=== PATIENT | male | born 1970 | race African-American/Black ===

== ENCOUNTER 2022-12-18 12:29 | Outpatient (REF) | payer MEDICAID, SELFPAY ==
[2022-12-18 14:07] LABS: Alanine Aminotransferase 25 U/L (0-40); Albumin Level 4.7 g/dL (3.5-5.0); Alkaline Phosphatase 115 U/L (39-117); Anion Gap 14 (12-20); Aspartate Amino Transferase 21 U/L (5-37); Bilirubin Total 0.6 mg/dL (0.0-1.0); Blood Urea Nitrogen 15 mg/dL (9-16); Calcium 10.8 mg/dL (8.4-10.2); Carbon Dioxide 25 mmol/L (22-29); Chloride 104 mmol/L (96-108); Cholesterol 188 mg/dL; Estimated Glomerular Filt Rate > 60; Glucose Random 94 mg/dL (60-115); HDL Cholesterol 38 mg/dL; LDL Cholesterol Calculated 97 mg/dl; Potassium 4.4 mmol/L (3.3-5.1); Sodium 139 mmol/L (135-145); Total Protein 9.2 g/dL (6.5-8.0); Triglycerides 266 mg/dL
[2022-12-18 14:16] LABS: TSH reflex Free T4 3.07 uIU/mL (0.32-4.0)
== END 2022-12-18 12:30 | disposition home or self-care (01) ==
LOC: HO.HHCL 12:29
PROVIDERS: Visit Provider Registered Nurse
DX: E78.1 Pure hyperglyceridemia (principal); E78.2 Mixed hyperlipidemia; F41.9 Anxiety disorder, unspecified; F32.A Depression, unspecified; R35.0 Frequency of micturition
CPT/HCPCS: 36415; 80053; 80061; 84443

== ENCOUNTER 2023-03-01 11:50 | Outpatient (REF) | payer MEDICAID, SELFPAY ==
[2023-03-01 13:09] LABS: MANUAL DIFF FLAG NO
[2023-03-01 13:26] LABS: Basophils Absolute Auto 0.1 X10*3/uL (0.0-0.2); Basophils Percent Auto 0.9 % (0-2); Eosinophils Absolute Auto 0.8 X10*3/uL (0.0-0.4); Eosinophils Percent Auto 11.4 % (0-4); Hematocrit 42.7 % (42.0-52.0); Hemoglobin 13.3 g/dl (14.0-18.0); Imm Gran Abs Auto 0.02 X10*3/uL (0.00-0.03); Imm Gran Pct Auto 0.3 % (0.0-0.4); Lymphocytes Absolute Auto 2.7 X10*3/uL (1.2-4.9); Lymphocytes Percent Auto 41.2 % (20-40); Mean Corpuscular HGB Conc 31.1 g/dl (31.0-36.0); Mean Corpuscular Volume 83.4 fL (80.0-98.0); Mean Platelet Volume 9.7 fL (9.4-12.4); Monocytes Absolute Auto 0.5 X10*3/uL (0.1-1.2); Monocytes Percent Auto 8.1 % (2-11); Neutrophils Absolute Auto 2.5 x10*3/uL (2.0-8.3); Neutrophils Percent Auto 38.1 % (45-73); Platelet Count 281 X10*3/uL (160-400); Red Blood Count 5.12 X10*6/uL (4.60-5.80); White Blood Count 6.6 X10*3/uL (4.8-10.8)
[2023-03-01 14:21] LABS: Alanine Aminotransferase 39 U/L (0-40); Albumin Level 4.6 g/dL (3.5-5.0); Alkaline Phosphatase 89 U/L (39-117); Anion Gap 14 (12-20); Aspartate Amino Transferase 24 U/L (5-37); Bilirubin Total 0.4 mg/dL (0.0-1.0); Blood Urea Nitrogen 16 mg/dL (9-16); Calcium 9.5 mg/dL (8.4-10.2); Carbon Dioxide 22 mmol/L (22-29); Chloride 108 mmol/L (96-108); Estimated Glomerular Filt Rate > 60; Glucose Random 93 mg/dL (60-115); Potassium 4.2 mmol/L (3.3-5.1); Sodium 140 mmol/L (135-145); Total Protein 8.6 g/dL (6.5-8.0)
[2023-03-04 06:57] LABS: Absolute CD3 Count 1514 cells/uL (840-3060); Absolute CD4 Count 320 cells/uL (490-1740); Absolute CD8 Count 1165 cells/uL (180-1170); Absolute Lymphocytes 2721 cells/uL (850-3900); CD4 CD8 Ratio 0.27 (0.86-5.00); Percent CD3 Cells 56 % (57-85); Percent CD4 Cells 12 % (30-61); Percent CD8 Cells 43 % (12-42)
[2023-03-05 13:19] LABS: HIV RNA PCR Qn Copies 85 copies/mL (NOT DETECTED); HIV RNA PCR Qn Log Copies 1.93 (NOT DETECTED)
== END 2023-03-01 11:51 | disposition home or self-care (01) ==
LOC: HO.HHCL 11:50
PROVIDERS: Visit Provider Internal Medicine
DX: B20 Human immunodeficiency virus [HIV] disease (principal)
CPT/HCPCS: 36415; 80053; 85025; 86359; 86360; 87536

== ENCOUNTER 2023-06-14 13:22 | Outpatient (REF) | payer MEDICAID, SELFPAY ==
[2023-06-17 10:43] LABS: Absolute CD3 Count 1948 cells/uL (840-3060); Absolute CD4 Count 411 cells/uL (490-1740); Absolute CD8 Count 1539 cells/uL (180-1170); Absolute Lymphocytes 2739 cells/uL (850-3900); CD4 CD8 Ratio 0.27 (0.86-5.00); Percent CD3 Cells 71 % (57-85); Percent CD4 Cells 15 % (30-61); Percent CD8 Cells 56 % (12-42)
== END 2023-06-14 13:23 | disposition home or self-care (01) ==
LOC: HO.HHCL 13:22
PROVIDERS: Visit Provider Internal Medicine
DX: B20 Human immunodeficiency virus [HIV] disease (principal)
CPT/HCPCS: 36415; 86359; 86360; 86481; 87536

== ENCOUNTER 2023-07-19 14:00 | Outpatient (RCR) | payer MEDICAID, SELFPAY | END 2024-03-17 13:58 | disposition home or self-care (01) | LOC: HO.PTCHIC 14:00 | PROVIDERS: PCP Nurse Practitioner Primary Care; Visit Provider Nurse Practitioner Primary Care | DX: M54.50 Low back pain, unspecified (principal); G89.29 Other chronic pain | CPT/HCPCS: 97110; 97162 ==

== ENCOUNTER 2023-12-13 12:19 | Outpatient (REF) | payer MEDICAID, SELFPAY ==
[2023-12-13 13:09] LABS: MANUAL DIFF FLAG NO
[2023-12-13 13:45] LABS: Basophils Absolute Auto 0.1 X10*3/uL (0.0-0.2); Basophils Percent Auto 0.9 % (0-2); Eosinophils Absolute Auto 0.7 X10*3/uL (0.0-0.4); Eosinophils Percent Auto 9.7 % (0-4); Hematocrit 44.3 % (42.0-52.0); Hemoglobin 14.1 g/dl (14.0-18.0); Imm Gran Abs Auto 0.02 X10*3/uL (0.00-0.03); Imm Gran Pct Auto 0.3 % (0.0-0.4); Lymphocytes Absolute Auto 2.8 X10*3/uL (1.2-4.9); Lymphocytes Percent Auto 41.9 % (20-40); Mean Corpuscular HGB Conc 31.8 g/dl (31.0-36.0); Mean Corpuscular Hemoglobin 26.1 pg (27.0-33.0); Mean Platelet Volume 9.2 fL (9.4-12.4); Monocytes Absolute Auto 0.4 X10*3/uL (0.1-1.2); Monocytes Percent Auto 6.2 % (2-11); Neutrophils Absolute Auto 2.8 x10*3/uL (2.0-8.3); Platelet Count 255 X10*3/uL (160-400); Red Cell Distribution Width 14.9 % (11.0-16.0); White Blood Count 6.7 X10*3/uL (4.8-10.8)
[2023-12-13 13:46] LABS: Cholesterol 118 mg/dL (<200); HDL Cholesterol 35 mg/dL (>40); LDL Cholesterol Calculated 35 mg/dL (<100); Triglycerides 243 mg/dL (<150)
[2023-12-13 13:55] LABS: Prostate Specific Antigen 2.22 ng/mL (<0.05-4.0)
[2023-12-13 16:14] LABS: Appearance Urine Clear; Color Urine Dark Yellow; Glucose Urine UA Negative (Negative); Leukocyte Esterase Urine Negative (Negative); Nitrite Urine Negative (Negative); PH 5.5 (5.0-9.0); Specific Gravity - Urine >= 1.030 (1.005-1.025); Urine Blood Negative (Negative); Urine Ketones Trace mg/dL (Negative); Urine Protein Trace mg/dL (Neg-Trace)
[2023-12-13 16:17] LABS: Bacteria Urine None Seen (None Seen); Hyaline Casts Urine 0-2 /LPF (0-2); RBC Urine 0-2 /HPF (0-2); Squamous Epithelial Cell Urine 0-2 /HPF (0-2); WBC Urine 0-5 /HPF (0-5)
[2023-12-14 15:28] LABS: C. trachomatis RNA TMA NOT DETECTED (NOT DETECTED); N. gonorrhoeae RNA TMA NOT DETECTED (NOT DETECTED)
[2023-12-17 13:32] LABS: Testosterone, Free 43.1 pg/mL (35.0-155.0); Testosterone, Total 228 ng/dL (250-1100)
== END 2023-12-13 12:20 | disposition home or self-care (01) ==
LOC: HO.HHCL 12:19
PROVIDERS: Visit Provider Nurse Practitioner Primary Care
DX: R39.12 Poor urinary stream (principal); R53.83 Other fatigue; R73.03 Prediabetes; N50.82 Scrotal pain
CPT/HCPCS: 36415; 80061; 81001; 84153; 84402; 84403; 85025; 87491; 87591

== ENCOUNTER 2024-03-25 13:50 | Outpatient (REF) | payer MEDICAID, SELFPAY ==
[2024-03-25 16:47] LABS: Alanine Aminotransferase 48 U/L (0-40); Albumin Level 4.7 g/dL (3.5-5.0); Alkaline Phosphatase 117 U/L (39-117); Anion Gap 12 (12-20); Aspartate Amino Transferase 35 U/L (5-37); Bilirubin Total 0.4 mg/dL (0.0-1.0); Blood Urea Nitrogen 15 mg/dL (9-16); Calcium 9.8 mg/dL (8.4-10.2); Carbon Dioxide 24 mmol/L (22-29); Chloride 107 mmol/L (96-108); Estimated Glomerular Filt Rate > 60; Glucose Random 115 mg/dL (60-115); Sodium 139 mmol/L (135-145); Total Protein 8.2 g/dL (6.5-8.0)
[2024-03-25 17:08] LABS: TSH reflex Free T4 2.67 uIU/mL (0.32-4.0)
[2024-03-26 08:22] LABS: Syphilis Screen Nonreactive (Nonreactive)
[2024-03-26 08:30] LABS: HBS Num1 0.34 mIU/mL (0-7.99); HBsAGNum1 0.52 S/CO (0.00-0.99); Hepatitis B Core Antibody Nonreactive (Nonreactive); Hepatitis B Surface Antigen Negative (Negative); ~HepC Num1 0.18 S/CO (0.00-0.79); ~Hepatitis B Surface Antibody NONREACTIVE (Nonreactive); ~Hepatitis C Antibody Nonreactive (Nonreactive)
[2024-03-26 20:03] LABS: Follicle Stimulating Hormone 6.3 mIU/mL (1.4-12.8); Lutenizing Hormone 4.3 mIU/mL (1.5-9.3); Sex Hormone Binding Globulin 14 nmol/L (10-50)
[2024-03-29 17:33] LABS: Testosterone, Total 181 ng/dL (250-1100)
[2024-03-29 18:14] LABS: Absolute CD3 Count 1710 cells/uL (840-3060); Absolute CD4 Count 400 cells/uL (490-1740); Absolute CD8 Count 1274 cells/uL (180-1170); Absolute Lymphocytes 2367 cells/uL (850-3900); CD4 CD8 Ratio 0.31 (0.86-5.00); Percent CD3 Cells 72 % (57-85); Percent CD4 Cells 17 % (30-61); Percent CD8 Cells 54 % (12-42)
== END 2024-03-25 13:51 | disposition home or self-care (01) ==
LOC: HO.HHCL 13:50
PROVIDERS: Referring Provider Nurse Practitioner Primary Care; Visit Provider Internal Medicine
DX: B20 Human immunodeficiency virus [HIV] disease (principal); R79.89 Other specified abnormal findings of blood chemistry; Z68.32 Body mass index [BMI] 32.0-32.9, adult; R53.83 Other fatigue
CPT/HCPCS: 36415; 80053; 83001; 83002; 84270; 84402; 84403; 84443; 86359; 86360; 86704; 86706; 86780; 86803; 87340

== ENCOUNTER 2024-04-06 13:00 | Outpatient (REF) | payer MEDICAID, SELFPAY ==
[2024-04-06 16:13] LABS: MANUAL DIFF FLAG NO
[2024-04-06 16:17] LABS: Basophils Absolute Auto 0.1 X10*3/uL (0.0-0.2); Basophils Percent Auto 1.1 % (0-2); Eosinophils Absolute Auto 0.4 X10*3/uL (0.0-0.4); Eosinophils Percent Auto 6.5 % (0-4); Hematocrit 42.2 % (42.0-52.0); Hemoglobin 13.8 g/dl (14.0-18.0); Imm Gran Abs Auto 0.01 X10*3/uL (0.00-0.03); Imm Gran Pct Auto 0.2 % (0.0-0.4); Lymphocytes Absolute Auto 2.6 X10*3/uL (1.2-4.9); Lymphocytes Percent Auto 40.2 % (20-40); Mean Corpuscular HGB Conc 32.7 g/dl (31.0-36.0); Mean Corpuscular Hemoglobin 26.8 pg (27.0-33.0); Mean Corpuscular Volume 81.9 fL (80.0-98.0); Mean Platelet Volume 9.7 fL (9.4-12.4); Monocytes Absolute Auto 0.5 X10*3/uL (0.1-1.2); Neutrophils Absolute Auto 2.9 x10*3/uL (2.0-8.3); Platelet Count 313 X10*3/uL (160-400); Red Blood Count 5.15 X10*6/uL (4.60-5.80); Red Cell Distribution Width 14.6 % (11.0-16.0); White Blood Count 6.4 X10*3/uL (4.8-10.8)
[2024-04-06 16:40] LABS: Iron 61 mcg/dL (45-160); Percent Iron Saturation 19 % (15-50); Total Iron Binding Capacity 320 mcg/dL (228-428); Unsaturated Iron Binding 259 ug/dL
[2024-04-06 16:56] LABS: Cortisol Random 5.4 ug/dL
[2024-04-06 17:00] LABS: Ferritin 107 ng/mL (20-250); Free T4 (Free Thyroxine) 0.91 ng/dL (0.71-1.85)
[2024-04-08 10:39] LABS: Prolactin 8.2 ng/mL (2.0-18.0)
[2024-04-08 14:29] LABS: HIV RNA PCR Qn Copies 51 copies/mL (NOT DETECTED); HIV RNA PCR Qn Log Copies 1.71 (NOT DETECTED)
== END 2024-04-06 13:01 | disposition home or self-care (01) ==
LOC: HO.HHCL 13:00
PROVIDERS: Nurse Practitioner Primary Care; PCP Internal Medicine Geriatric Medicine; Visit Provider Internal Medicine
DX: B20 Human immunodeficiency virus [HIV] disease (principal); E29.1 Testicular hypofunction
CPT/HCPCS: 36415; 82533; 82728; 83540; 84146; 84439; 85025; 87536

== ENCOUNTER 2024-07-31 12:16 | Outpatient (REF) | payer MEDICAID, SELFPAY ==
--- OUTSIDE RECORDS SUMMARY | 2024-07-31 13:00 | XMS_ITS | Clinical Summary ---
Author Organization [facility] ity Address [address] [place] [address] Care Team Providers Care Financial Planning Advisor Name Role Phone Unavailable Primary Care Provider Unavailabl e Social History Tobacco Use Types Packs/Day Years Used Date Smoking Tobacco: Never Assessed Sex and Gender Information Value Date Recorded Sex Assigned at Not on file Legal Sex Male 1:53 PM EST Gender Identity Not on file Sexual Orientation Not on file Plan of Treatment Health Maintenance Due Date Last Done Comments DTaP,Tdap,and Td Vaccines (1 - Tdap) 1991 Hepatitis B Vaccines (1 of 3 - 19+ 3-dose series) 1991 Pneumococcal Vaccine: 50+ Ye ars (1 of 1 - PCV) 2022 Zoster Vaccines (1 of 2) 2022 Cholesterol Screening (Lipid Panel) 07/09/2023 Colorectal Cancer Screening: Colonoscopy 07/09/2023 Depression Screening 07/09/2023 HIV Screening 07/09/2023 Hepatitis C Screening 07/09/2023 Social Influencers of Health Screening 07/09/2023 COVID-19 Vaccine ( - 2023-2 5 season) 2024 Influenza Vaccine (#1) 2024 HIB Vaccines Aged Out No longer eligi ble based on patient's age to complete this topic HPV Vaccines Aged Out No longer eligi ble based on patient's age to complete this topic Hepatitis A Vaccines Aged Out No long er eligible based on patient's age to complete this topic IPV Vaccines Aged Out No longer eligi ble based on patient's age to complete this topic MMR Vaccines Aged Out No longer eligi ble based on patient's age to complete this topic Meningococcal ACWY Vaccine Aged Out N o longer eligible based on patient's age to complete this topic Meningococcal B Vacine Aged Out No lo nger eligible based on patient's age to complete this topic Pneumococcal Vaccine: Pediat rics (0 to 5 Years) and At-Risk Patients (6 to 64 Years) Aged Out No longer eligible b ased on patient's age to complete this topic RSV Immunization Patients Un julio 20 months Aged Out No longer eligible b ased on patient's age to complete this topic Varicella Vaccines Aged Out No longer eligible based on patient's age to complete this topic
[2024-08-03 13:14] LABS: HIV RNA PCR Qn Copies 31 copies/mL (NOT DETECTED); HIV RNA PCR Qn Log Copies 1.49 (NOT DETECTED)
== END 2024-07-31 12:17 | disposition home or self-care (01) ==
LOC: HO.HHCL 12:16
PROVIDERS: Visit Provider Internal Medicine
DX: Z21 Asymptomatic human immunodeficiency virus [HIV] infection status (principal)
CPT/HCPCS: 36415; 87536

== ENCOUNTER → 2024-10-09 08:15 | Outpatient (BNV) | payer OTHER, SELFPAY | PROVIDERS: PCP Nurse Practitioner Primary Care; Visit Provider Radiology Diagnostic Radiology | DX: M89.9 Disorder of bone, unspecified (principal) | CPT/HCPCS: 77080 ==

== ENCOUNTER 2024-10-09 08:37 | Outpatient (REF) | payer OTHER, SELFPAY ==
--- NOTE | ~2024-10-09 | MM_ITS ---
EXAMINATION: DXA BONE DENSITY AXIAL HISTORY: m89.9 TECHNIQUE: Heroes2[employer] Dual energy absorptiometry (DEXA) of the lumbar spine, total left hip, and femoral neck was performed. COMPARISON: There are no prior studies for comparison. FINDINGS: The bone mineral density of the lumbar spine is 1.015 with a T-score of -1.7, and a Z-score of -1.9. This is indicative of osteopenia. The bone mineral density of the left total hip is 0.897 with a T-score of -1.4, and a Z-score of -1.3. This is indicative of osteopenia. The bone mineral density of the left femoral neck is 0.859 with a T-score of -1.6, and a Z-score of -1.2. This is indicative of osteopenia. FRACTURE RISK: The FRAX index suggests a risk of major osteoporotic fracture of 2.5%, and of hip fracture 0.3%. MM/XR DEXA axial skeleton IMPRESSION: Based on bone mineral density, and according to World Health Organization (WHO) criteria, the diagnosis is consistent with osteopenia. All bone density values are in grams per centimeter squared (g/cm2). Statistically, 68% of repeat scans fall within 1 SD (+/- 0.010 g/cm2 for AP spine L1-L4) and 1 SD (+/- 0.012 g/cm2 for femur total) FRAX is a trademark of the [employer]'s [place] [facility] Met[facility] Bone Disease, a World Health Organization (WHO) Collaborating Center. Electronically signed by: Maninder Esquivel MD 10/09/2024 09:46 AM EDT
--- OUTSIDE RECORDS SUMMARY | 2024-10-09 09:01 | XMS_ITS | Clinical Summary ---
Author Organization [facility] ity Address [address] [place] [address] Care Team Providers Care Chemical Dependency Counselor Name Role Phone Unavailable Primary Care Provider [...] - 2023-2 5 season) 2024 Influenza Vaccine (Season Ended) 2025 HIB Vaccines Aged Out No longer eligi [...] age to complete this topic Meningococcal B Vaccine Aged Out No l onger eligible based on patient's age to complete [...]
== END 2024-10-09 08:38 | disposition home or self-care (01) ==
LOC: HO.MAMMO 08:37
PROVIDERS: PCP Nurse Practitioner Primary Care; Visit Provider Internal Medicine
DX: Z13.820 Encounter for screening for osteoporosis (principal); M89.9 Disorder of bone, unspecified; M85.89 Other specified disorders of bone density and structure, multiple sites
CPT/HCPCS: 77080

== ENCOUNTER 2024-10-23 10:43 | Outpatient (REF) | payer OTHER, SELFPAY ==
--- OUTSIDE RECORDS SUMMARY | 2024-10-23 11:15 | XMS_ITS | Clinical Summary ---
Author Organization [facility] ity Address [address] [place] [address] Care Team Providers Care Electrotype Caster Name Role Phone Unavailable Primary Care Provider [...]
[2024-10-23 13:04] LABS: MANUAL DIFF FLAG NO
[2024-10-23 13:15] LABS: Basophils Percent Auto 0.3 % (0-2); Eosinophils Absolute Auto 0.3 X10*3/uL (0.0-0.4); Hematocrit 45.2 % (42.0-52.0); Hemoglobin 14.3 g/dl (14.0-18.0); Imm Gran Abs Auto 0.02 X10*3/uL (0.00-0.03); Imm Gran Pct Auto 0.3 % (0.0-0.4); Lymphocytes Absolute Auto 2.1 X10*3/uL (1.2-4.9); Lymphocytes Percent Auto 36.6 % (20-40); Mean Corpuscular HGB Conc 31.6 g/dl (31.0-36.0); Mean Corpuscular Hemoglobin 26.2 pg (27.0-33.0); Mean Corpuscular Volume 82.8 fL (80.0-98.0); Mean Platelet Volume 9.5 fL (9.4-12.4); Monocytes Absolute Auto 0.5 X10*3/uL (0.1-1.2); Monocytes Percent Auto 8.1 % (2-11); Neutrophils Absolute Auto 2.9 x10*3/uL (2.0-8.3); Neutrophils Percent Auto 49.7 % (45-73); Platelet Count 248 X10*3/uL (160-400); Red Blood Count 5.46 X10*6/uL (4.60-5.80); Red Cell Distribution Width 16.6 % (11.0-16.0); White Blood Count 5.8 X10*3/uL (4.8-10.8)
[2024-10-23 13:18] LABS: Amphetamine Screen Urine Not Detected (Not Detect); Barbiturates, Urine Not Detected (Not Detect); Benzodiazepines Screen Urine Not Detected (Not Detect); Buprenorphine Scr Not Detected (Not Detect); Cannabinoid Screen Urine Not Detected (Not Detect); Cocaine Screen Urine Not Detected (Not Detect); Fentanyl, urine Not Detected (Not Detect); Methadone Screen, Urine Not Detected (Not Detect); Opiate Screen Urine Not Detected (Not Detect); Oxycodone Screen Urine Not Detected (Not Detect); Phencyclidine Screen Urine Not Detected (Not Detect)
[2024-10-23 13:24] LABS: Estimated Average Glucose 117 mg/dL; Hemoglobin A1C 146.3839 umol/L; Hemoglobin A1c % 5.7 % (<6.0); Total Hemoglobin (HGBA1C) 3778.1676 umol/L
[2024-10-23 14:12] LABS: Alanine Aminotransferase 46 U/L (0-40); Albumin Level 4.5 g/dL (3.5-5.0); Alkaline Phosphatase 85 U/L (39-117); Aspartate Amino Transferase 35 U/L (5-37); Bilirubin Direct 0.2 mg/dL (0.0-0.5); Bilirubin Total 0.7 mg/dL (0.0-1.0); Cholesterol 107 mg/dL (<200); HDL Cholesterol 32 mg/dL (>40); LDL Cholesterol Calculated 42 mg/dL (<100); Total Protein 7.4 g/dL (6.5-8.0); Triglycerides 168 mg/dL (<150)
[2024-10-29 17:02] LABS: Testosterone, Free 211.5 pg/mL (35.0-155.0); Testosterone, Total 836 ng/dL (250-1100)
== END 2024-10-23 10:44 | disposition home or self-care (01) ==
LOC: HO.HHCL 10:43
PROVIDERS: Nurse Practitioner Primary Care; Visit Provider Registered Nurse
DX: E29.1 Testicular hypofunction (principal); F41.9 Anxiety disorder, unspecified; F32.A Depression, unspecified; E78.2 Mixed hyperlipidemia; Z13.1 Encounter for screening for diabetes mellitus
CPT/HCPCS: 36415; 80061; 80076; 80307; 83036; 84402; 84403; 85025

== ENCOUNTER 2024-10-23 16:56 | Outpatient (REF) | payer OTHER, SELFPAY | END 2024-10-23 16:57 | disposition home or self-care (01) | LOC: HO.HHCLNP 16:56 | PROVIDERS: Visit Provider Nurse Practitioner Primary Care | DX: Z21 Asymptomatic human immunodeficiency virus [HIV] infection status (principal) | CPT/HCPCS: 88112 ==

== ENCOUNTER 2025-01-29 13:08 | Outpatient (REF) | payer OTHER, SELFPAY ==
--- OUTSIDE RECORDS SUMMARY | 2025-01-29 13:12 | XMS_ITS | Clinical Summary ---
Author Organization [facility] Address [address] [place] [address] Phone Care Team Providers Care Loan And Credit Manager Name Role Phone Lupe Case NP Primary Care Provider [phone] Allergies Active Allergy Reactions Criticality Noted Date Comments Bee Venom Protein (Honey Bee) Anaphylaxis High 04/30 Medications albuterol HFA (PROAIR HFA ; PROVENTIL HFA ; VENTOLIN HFA) 90 mcg/actuation inhaler Inhale 2 puffs by mouth every 6 (six) hours if needed for wheezing. Active bictegravir-emt ricitabine-teno fovir alafenamide (BIKTARVY) 50-200-25 mg per tablet Take 1 tablet by mouth 1 (one) time each day. Active buPROPion XL (WELLBUTRIN XL) 300 mg 24 hr tablet Take 1 tablet (300 mg total) by mouth 1 (one) time each day. Take with 150mg. Do not crush, chew, or split. Active buPROPion XL (WELLBUTRIN XL) 150 mg 24 hr tablet Take 1 tablet (150 mg total) by mouth 1 (one) time each day. Take with 300mg. Do not crush, chew, or split. Active diclofenac (VOLTAREN) 1 % topical gel Apply 2 g topically 4 (four) times a day. Active EPINEPHrine (EpiPen 2-Luis) 0.3 mg/0.3 mL injection Inject 0.3 mL (0.3 mg total) into the thigh if needed for anaphylaxis. Active escitalopram (LEXAPRO) 10 mg tablet Take 1 tablet (10 mg total) by mouth 1 (one) time each day. Active eszopiclone (LUNESTA) 2 mg tablet Take 1 tablet (2 mg total) by mouth at bedtime. Take immediately before bedtime Active naproxen (NAPROSYN) 500 mg tablet Take 1 tablet (500 mg total) by mouth 2 (two) times a day with meals. Active omega-3 acid ethyl esters (LOVAZA) 1 gram capsule Take 2 capsules (2 g total) by mouth 2 (two) times a day. Active propranoloL (INDERAL) 10 mg tablet Take 1 tablet (10 mg total) by mouth 2 (two) times a day. Active rosuvastatin (CRESTOR) 10 mg tablet Take 1 tablet (10 mg total) by mouth 1 (one) time each day. Active testosterone cypionate (DEPO-TESTOTERO NE) 200 mg/mL injection Inject 0.5 mL (100 mg total) into the shoulder, thigh, or buttocks every 7 (seven) days. Active tirzepatide, weight loss, (ZEPBOUND) 10 mg/0.5 mL injection Inject 0.5 mL (10 mg total) under the skin every 7 (seven) days. Active bisacodyL (DULCOLAX) 5 mg EC tablet Take 2 tablets by mouth right before beginning bowel prep. See instructions provided by the office 2 tablet 5 Active polyethylene glycol (Golytely) 236-22.74-6.74 -5.86 gram solution Take 4L by mouth once for one dose. May substitue any PEG. Starting at 2PM the day before your procedure drink 1 8oz glasses at your own pace until you complete half of the gallon. Finish 2nd half of the gallon at 8PM. 4000 mL 5 Active Encounters Date Type Department Care Team Description 01/04/2025 Telephone Gastroenterology - [address] [place] [id number] Sim Ramsay MD from Last 3 Months Social History Tobacco Use Types Packs/Day Years Used Date Smoking Tobacco: Never Assessed Sex and Gender Information Value Date Recorded Sex Assigned at Not on file Legal Sex Male 1:53 PM EST Gender Identity Not on file Sexual Orientation Not on file Last Filed Vital Signs Vital Sign Reading Time Taken Comments Blood Pressure - - Pulse - - Temperature - - Respiratory Rate - - Oxygen Saturation - - Inhaled Oxygen Concentration - - Weight 77.1 kg (170 lb) 12/29/2024 3:35 PM EDT Height 170.2 cm (5' 7 ) 12/29/2024 3:35 PM EDT Body Mass Index 26.63 12/29/2024 3:35 PM EDT Plan of Treatment Upcoming Encounters Date Type Department Care Team (Late st Contact Info) Description 03/10/2025 2:00 PM EDT Appointment [facility] [address] [place] [id number] Sim Ramsay MD [address] [place] [address] Health Maintenance Due Date Last Done Comments DTaP,Tdap,and Td Vaccines (1 - Tdap) 1991 Hepatitis B Vaccines (1 of 3 - 19+ 3-dose series) 1991 Pneumococcal Vaccine: 50+ Ye ars (1 of 1 - PCV) 2022 Zoster Vaccines (1 of 2) 2022 Cholesterol Screening (Lipid Panel) 07/09/2023 Colorectal Cancer Screening: Colonoscopy 07/09/2023 HIV Screening 07/09/2023 Hepatitis C Screening 07/09/2023 Social Influencers of Health Screening 07/09/2023 COVID-19 Vaccine (1 - 2023-2 5 season) 2024 Depression Screening 06/10/2024 Influenza Vaccine (#1) 2025 HIB Vaccines Aged Out No longer [...] on patient's age to complete this topic Insurance [employer] Care Teams Loan And Credit Manager Relationship Specialty Start Date End Date Lupe Case NP [address] [place] [address] [place] [id number] PCP - General 10/28/24
[2025-01-29 14:47] LABS: MANUAL DIFF FLAG NO
[2025-01-29 14:50] LABS: Hematocrit 46.4 % (42.0-52.0); Hemoglobin 15.1 g/dl (14.0-18.0); Imm Gran Abs Auto 0.01 X10*3/uL (0.00-0.03); Imm Gran Pct Auto 0.2 % (0.0-0.4); Lymphocytes Absolute Auto 2.0 X10*3/uL (1.2-4.9); Mean Corpuscular HGB Conc 32.5 g/dl (31.0-36.0); Mean Corpuscular Hemoglobin 27.1 pg (27.0-33.0); Mean Corpuscular Volume 83.3 fL (80.0-98.0); NRBC Abs Auto 0.000 X10*3/uL (0.0-0.012); NRBC Pct Auto 0.0 /100WBC (0.0-0.2); Platelet Count 278 X10*3/uL (160-400); Red Blood Count 5.57 X10*6/uL (4.60-5.80); White Blood Count 5.6 X10*3/uL (4.8-10.8)
[2025-01-29 14:52] LABS: Appearance Urine Turbid; Glucose Urine UA Negative (Negative); PH 5.5 (5.0-9.0); Specific Gravity - Urine >= 1.030 (1.005-1.025)
[2025-01-29 15:01] LABS: Alanine Aminotransferase 33 U/L (0-40); Albumin Level 5.1 g/dL (3.5-5.0); Alkaline Phosphatase 97 U/L (39-117); Anion Gap 13 (12-20); Aspartate Amino Transferase 29 U/L (5-37); Blood Urea Nitrogen 13 mg/dL (9-16); Calcium 9.3 mg/dL (8.4-10.2); Carbon Dioxide 25 mmol/L (22-29); Chloride 103 mmol/L (96-108); Estimated Glomerular Filt Rate > 60; Potassium 4.1 mmol/L (3.3-5.1); Sodium 137 mmol/L (135-145); Total Protein 8.0 g/dL (6.5-8.0)
[2025-01-30 08:46] LABS: ~HepC Num1 0.13 S/CO (0.00-0.79); ~Hepatitis C Antibody Nonreactive (Nonreactive)
[2025-01-30 13:18] LABS: HIV RNA PCR Qn Copies 417 copies/mL (NOT DETECTED); HIV RNA PCR Qn Log Copies 2.62 (NOT DETECTED)
[2025-02-01 13:52] LABS: TS Negative Control Passed; TS Panel A 0; TS Panel B 1; TS Positive Control Passed; TSpotTB Negative (Negative)
[2025-02-03 16:23] LABS: Absolute CD3 Count 1539 cells/uL (840-3060); Absolute CD8 Count 1150 cells/uL (180-1170); Percent CD3 Cells 70 % (57-85); Percent CD8 Cells 53 % (12-42)
== END 2025-01-29 13:09 | disposition home or self-care (01) ==
LOC: HO.HHCL 13:08
PROVIDERS: PCP Nurse Practitioner Primary Care; Visit Provider Internal Medicine
DX: Z21 Asymptomatic human immunodeficiency virus [HIV] infection status (principal); Z11.59 Encounter for screening for other viral diseases; Z11.1 Encounter for screening for respiratory tuberculosis
CPT/HCPCS: 36415; 80053; 81001; 85025; 86359; 86360; 86481; 86803; 87536

== ENCOUNTER 2025-04-27 10:49 | Outpatient (REF) | payer OTHER, SELFPAY ==
[2025-04-29 17:33] LABS: HIV RNA PCR Qn Copies 274 copies/mL (NOT DETECTED); HIV RNA PCR Qn Log Copies 2.44 (NOT DETECTED)
== END 2025-04-27 10:50 | disposition home or self-care (01) ==
LOC: HO.HHCL 10:49
PROVIDERS: PCP Nurse Practitioner Primary Care; Visit Provider Internal Medicine
DX: Z21 Asymptomatic human immunodeficiency virus [HIV] infection status (principal)
CPT/HCPCS: 36415; 87536